=== PATIENT | male | born 1990 | race American Indian/Alaskan Native ===

== ENCOUNTER 2021-09-14 13:02 | Emergency (ER) | payer SELFPAY ==
[2021-09-14 13:32] VITALS: BP 170/65
[2021-09-14] MEDS ORDERED: IPRATROPIUM/ALBUTEROL SULFATE 3 ML AMPUL.NEB IH ONE ×2 (17:46→18:48)
[2021-09-14] MEDS ORDERED: ONDANSETRON 4 MG ODT TAB PO ONE (17:47)
[2021-09-14] MEDS ORDERED: DEXAMETHASONE 4 MG TAB PO ONE (17:47)
[2021-09-14] MEDS ORDERED: KETOROLAC 10 MG TAB PO ONE (17:47)
[2021-09-14] MEDS ORDERED: ACETAMINOPHEN W/CODEINE 300-30 MG TAB PO ONE (17:48)
--- NOTE | 2021-09-14 18:25 | XRay Report ---
CHEST 2 VIEWS INDICATION / CLINICAL INFORMATION: chest pain. COMPARISON: None available. FINDINGS: SUPPORT DEVICES: None. HEART / MEDIASTINUM: No significant abnormality. LUNGS / PLEURA: No significant pulmonary or pleural abnormality. No pneumothorax. ADDITIONAL FINDINGS: No significant additional findings. IMPRESSION: 1. No acute findings. Signer Name: Tr Acosta DO Signed: 09/14/2021 6:20 PM Workstation Name: [id number]
--- NOTE | 2021-09-14 19:01 | Emergency Department Report ---
- General Chief Complaint: Chest Pain Stated Complaint: TIGHT CHEST,VOMITTING,COUGH Time Seen by Provider: 09/14/21 17:23 Source: patient Mode of arrival: Ambulatory Limitations: No Limitations - History of Present Illness Initial Comments: 31-year-old black male with a past medical history of asthma and diabetes presents to the emergency department for evaluation of 2-day history of persistent cough, nausea, vomiting, and body aches. He states that he is coughed so much that he now has pain in his chest when he coughs only. He also complains of some intermittent shortness of breath. He denies fever and abdominal pain. He is also requesting a refill of his Metformin. MD Complaint: cough, sore throat, rhinorrhea, nasal congestion -: Gradual, days(s) Severity: moderate (To) Severity scale (0 -10): 7 Quality: aching Consistency: constant Worsens With: deep breaths Associated Symptoms: myalgias, headache, rhinorrhea, nasal congestion, sore throat, cough, chest pain, shortness of breath, nausea, vomiting. denies: fever, chills, diaphoresis, stiff neck, abdominal pain, diarrhea, dysuria, rash, confusion, hoarseness, ear pain - Related Data Previous Rx's Medication Instructions Recorded Last Taken Type Albuterol Mdi (or & Nicu Only) 2 puff IH QID PRN #8.5 gram 09/14/21 Unknown Rx [ProAir HFA Inhaler] Benzonatate [Tessalon Perles] 100 mg PO Q8HR #21 cap 09/14/21 Unknown Rx Naproxen [Naprosyn] 500 mg PO BID #14 tab 09/14/21 Unknown Rx Ondansetron [Zofran Odt] 4 mg PO Q8HR #12 tab.rapdis 09/14/21 Unknown Rx guaiFENesin/CODEINE [Robitussin AC] 5 ml PO TID PRN #120 ml 09/14/21 Unknown Rx metFORMIN [Glucophage] 500 mg PO BID #60 tab 09/14/21 Unknown Rx Allergies Allergy/AdvReac Type Severity Reaction Status Date / Time No Known Allergies Allergy Verified 09/14/21 13:29 ED Review of Systems ROS: Stated complaint: TIGHT CHEST,VOMITTING,COUGH Other details as noted in HPI Comment: All other systems reviewed and negative Constitutional: denies: chills, diaphoresis, fever, malaise, weakness Eyes: denies: eye pain, eye discharge ENT: throat pain, congestion. denies: ear pain, dental pain Respiratory: cough, shortness of breath. denies: orthopnea, SOB with exertion, SOB at rest Cardiovascular: chest pain. denies: palpitations, dyspnea on exertion, orthopnea, edema, syncope, paroxysmal nocturnal dyspnea Endocrine: no symptoms reported Gastrointestinal: nausea, vomiting. denies: abdominal pain, diarrhea, hem atemesis, melena, hematochezia Genitourinary: denies: urgency, dysuria, frequency, hematuria, discharge, testicular pain Musculoskeletal: denies: back pain Skin: denies: change in color, change in hair/nails Neurological: headache. denies: weakness, numbness, paresthesias, confusion, vertigo Psychiatric: denies: anxiety, depression Hematological/Lymphatic: denies: easy bleeding, easy bruising ED Past Medical Hx - Medications Home Medications: Home Medications Medication Instructions Recorded Confirmed Last Taken Type Albuterol Mdi (or & Nicu Only) 2 puff IH QID PRN #8.5 gram 09/14/21 Unknown Rx [ProAir HFA Inhaler] Benzonatate [Tessalon Perles] 100 mg PO Q8HR #21 cap 09/14/21 Unknown Rx Naproxen [Naprosyn] 500 mg PO BID #14 tab 09/14/21 Unknown Rx Ondansetron [Zofran Odt] 4 mg PO Q8HR #12 tab.rapdis 09/14/21 Unknown Rx guaiFENesin/CODEINE [Robitussin AC] 5 ml PO TID PRN #120 ml 09/14/21 Unknown Rx metFORMIN [Glucophage] 500 mg PO BID #60 tab 09/14/21 Unknown Rx ED Physical Exam - General Limitations: No Limitations General appearance: alert, in no apparent distress - Head Head exam: Present: atraumatic, normocephalic - Eye Eye exam: Present: normal appearance. Absent: scleral icterus, conjunctival injection - ENT ENT exam: Present: mucous membranes moist. Absent: normal orophraynx (Erythema to posterior oropharynx) - Neck Neck exam: Present: normal inspection. Absent: tenderness, lymphadenopathy - Respiratory Respiratory exam: Present: wheezes, chest wall tenderness. Absent: respiratory distress, rales, rhonchi, stridor, accessory muscle use - Cardiovascular Cardiovascular Exam: Present: regular rate, normal heart sounds - GI/Abdominal GI/Abdominal exam: Present: soft, normal bowel sounds. Absent: distended, tenderness, guarding, rebound, rigid - Extremities Exam Extremities exam: Present: normal inspection - Back Exam Back exam: Present: normal inspection. Absent: tenderness, CVA tenderness (R), CVA tenderness (L), paraspinal tenderness, vertebral tenderness - Neurological Exam Neurological exam: Present: alert, oriented X3 - Psychiatric Psychiatric exam: Present: normal affect, normal mood - Skin Skin exam: Present: warm, dry, intact, normal color ED Course Vital Signs 09/14/21 09/14/21 13:30 18:32 Temperature 99 F Pulse Rate 95 H Respiratory 16 16 Rate Blood Pressure 170/65 [Left] O2 Sat by Pulse 95 Oximetry ED Medical Decision Making - EKG Data Interpretation: no acute changes 09/14/21 21:28 No acute ischemic changes noted - Radiology Data Radiology results: report reviewed, image reviewed Chest x-ray IMPRESSION: 1. No acute findings. - Medical Decision Making 31-year-old black male with a past medical history of asthma and diabetes presents to the emergency department for evaluation of 2-day history of persistent cough, nausea, vomiting, and body aches. He states that he is coughed so much that he now has pain in his chest when he coughs only. He also complains of some intermittent shortness of breath. He denies fever and abdominal pain. He is also requesting a refill of his Metformin Chest x-ray without any acute abnormalities. Nausea, vomiting, headache, and cough resolved after medication. Wheezing resolved after DuoNeb's, and patient states that he feels much better. No acute abnormalities noted on physical exam. Patient will be treated for viral syndrome and sent home with Zofran, Tessalon Perles, Robitussin-AC, and an albuterol inhaler to use as needed for symptoms. He was given 1 month refill of Metformin. He was advised to take medications as prescribed and follow-up with primary care provider if no improvement or worsening symptoms. He verbalized understanding of and agreement with plan of care. Critical care attestation.: If time is entered above; I have spent that time in minutes in the direct care of this critically ill patient, excluding procedure time. ED Disposition Clinical Impression: Viral syndrome, Medication refill Disposition: 01 HOME / SELF CARE / HOMELESS Is pt being admited?: No Does the pt Need Aspirin: No Condition: Stable Instructions: Viral Respiratory Infection, [id number], Viral Illness, Adult Additional Instructions: Take medications as prescribed. Drink plenty of noncaffeinated fluids. Get rest. Follow-up with primary care provider if no improvement or worsening symptoms. Prescriptions: metFORMIN [Glucophage] 500 mg PO BID #60 tab Naproxen [Naprosyn] 500 mg PO BID #14 tab Albuterol Mdi (or & Nicu Only) [ProAir HFA Inhaler] 2 puff IH QID PRN #8.5 gram PRN Reason: Shortness Of Breath guaiFENesin/CODEINE [Robitussin AC] 5 ml PO TID PRN #120 ml PRN Reason: Cough Benzonatate [Tessalon Perles] 100 mg PO Q8HR #21 cap Ondansetron [Zofran Odt] 4 mg PO Q8HR #12 tab.zachery Referrals: DAVID RAUSCH MD [Primary Care Provider] - 3-5 Days Forms: Work/School Release Form(ED) Time of Disposition: 19:02
--- NOTE | 2021-09-16 19:01 | Electrocardiograph Report ---
[facility] Test Date: 2021-09-14 Test Time: 13:42:10 Pat Name: MONA DUNCAN Department: Room: Gender: M [employer] Order Picker: [place] : [id number] Requested By: MASSIEL NAVA Order Number: [id number] Reading MD: Dallas Fernandez Measurements Intervals [place] Rate: 89 P: 0 RI: 129 QRS: 88 QRSD: 101 T: 8 QT: 360 QTc: 439 Interpretive Statements Sinus rhythm [id number] No previous ECG available for comparison Electronically Signed On 09-16-2021 19:01:17 EDT by Dallas Fernandez
== END 2021-09-14 21:02 | disposition home or self-care (01) ==
LOC: ED 13:02
DX: B34.9 Viral infection, unspecified (principal); Z76.0 Encounter for issue of repeat prescription
CPT/HCPCS: 71046; 93005; 94640; 99283; J8540